=== PATIENT | female | born 1930 | race Caucasian/White ===

== ENCOUNTER → 2016-11-12 | Outpatient (CLI) | payer MEDICARE, OTHER ==
[~2016-11-12] MED LIST: FERR-18; IBAN150T4
--- NOTE | 2016-11-12 09:34 | RADRPT ---
PROCEDURE: US Lower extremity Venous. CLINICAL INDICATION: Left leg swelling TECHNIQUE: Multiple sonographic images of the left lower extremity deep venous system was obtained utilizing grayscale, color-flow, compressive sonography and doppler imaging with augmentation. The images were reviewed on a PACS workstation. COMPARISON: 12/21/13 FINDINGS: There is normal compressibility and flow within the left common femoral, superficial femoral, hammersmith helper ior tibial, peroneal and popliteal veins. RPTAT: AA IMPRESSION: No sonographic evidence for deep venous thrombosis. .Juan Manuel Figueroa MD, MD Date Time Electronically viewed and signed by .Juan Manuel Figueroa MD, on 11/12/2016 09:34 .S/
== END | disposition home or self-care (01) ==
LOC: VAS 08:54
PROVIDERS: ATTEND Internal Medicine
DX: M79.605 Pain in left leg (principal); R22.42 Localized swelling, mass and lump, left lower limb
CPT/HCPCS: 93971